=== PATIENT | male | born 1950 | race Asian ===

== ENCOUNTER 2018-10-30 07:17 | Day surgery (SDC) | payer MEDICARE, MEDICAID ==
[2018-10-30] VITALS (8 sets, daily range): BP systolic 117–137; BP diastolic 72–88
[~2018-10-30] VITALS: Ht 149.9 cm; Wt 62.5 kg
[~2018-10-30 07:17] MED LIST: ACYC-202 PO; AMLO2.5T2 PO; ASPI-1265 PO; CARB300C9 PO; CARV-50 PO; DOCUMENT DATE & TIME OF BETA-BLOCKER PO ONE; IBUP-1984 PO; SIMV20TA5 PO; cefazolin/dext.iso 2gm/100 ML IV ONE; famotidine 20mg tablet PO ONE; ringers solution, lacted 1,000 ML IV SCH
[2018-10-30] MEDS ORDERED: CARV6.253 PO (08:36)
[2018-10-30] MEDS ORDERED: ceFAZolin 1000mg inj ONE (08:44)
[2018-10-30] MEDS ORDERED: BUPIVAcaine/PF 2.5 mg/ml (0.25%) 30ml vial ONE (08:44)
[2018-10-30] MEDS ORDERED: LIDOcaine 1% 30ml preserv. free vial ONE (08:44)
[2018-10-30 09:15] LABS: PRE OP PROTIME 10.1 SECONDS (9.0-12.0)
--- NOTE | 2018-10-30 09:18 | NUR ---
SON HERE TO TRANSLATE FOR PT
[2018-10-30 09:19] LABS: BASOPHILS % (AUTO) 0.8 % (0-1); EOSINOPHILS # (AUTO) 0.1 X10'3 (0-0.9); EOSINOPHILS % (AUTO) 1.7 % (0-6); LYMPHOCYTES # (AUTO) 1.3 X10'3 (1.1-4.8); LYMPHOCYTES % (AUTO) 24.4 % (21-51); MEAN CORPUSCULAR HEMOGLOBIN 25.2 PG (27.0-31.0); MEAN CORPUSCULAR VOLUME 76.5 FL (78-98); MEAN PLATELET VOLUME 6.8 FL (7.4-10.4); MONOCYTES # (AUTO) 0.3 X10'3 (0-0.9); MONOCYTES % (AUTO) 6.3 % (2-12); NEUTROPHILS # (AUTO) 3.6 X10'3 (1.8-7.7); NEUTROPHILS % (AUTO) 66.8 % (42-75); PRE OP HEMATOCRIT 43.6 % (42.0-52.0); PRE OP HEMOGLOBIN 14.4 g/dL (14.0-17.9); PRE OP PLATELET COUNT 270 X10'3 (140-440); RED BLOOD COUNT 5.69 X10'6 (4.70-6.10); RED CELL DISTRIBUTION WIDTH 14.1 % (11.5-14.5)
[2018-10-30 09:42] LABS: ALBUMIN 3.5 G/DL (3.4-5.0); ALBUMIN/GLOBULIN RATIO 0.9 (1.1-1.5); ALKALINE PHOSPHATASE 77 IU/L (46-116); BLOOD UREA NITROGEN 10 MG/DL (7-18); BUN/CREATININE RATIO 12.2 (5.4-32.0); CALCIUM 8.4 MG/DL (8.5-10.1); CHLORIDE 106 MMOL/L (99-107); CREATININE 0.82 MG/DL (0.60-1.10); PRE OP ALT 45 U/L (30-65); PRE OP ANION GAP 6 (8-16); PRE OP AST 22 U/L (10-37); PRE OP BILIRUB, TOTAL 0.2 MG/DL (0.0-1.0); PRE OP GLUCOSE 106 MG/DL (70-104); PRE OP POTASSIUM 3.9 MMOL/L (3.4-5.1); PRE OP SODIUM 141 MMOL/L (135-145); TOTAL CARBON DIOXIDE 28.6 MMOL/L (24-32); TOTAL PROTEIN 7.2 G/DL (6.4-8.2); eGFR > 90 ML/MIN
[2018-10-30] MEDS ORDERED: sevoflurane 250ml liquid IH ONE (10:21)
[2018-10-30] MEDS ORDERED: fentaNYL/PF 50MCG/1 ML 2ML syringe ONE (10:23)
[2018-10-30] MEDS ORDERED: midazolam 2 mg/2 ml injection ONE (10:24)
[2018-10-30] MEDS ORDERED: meperidine/PF 25mg/ml syringe IV PRN ×3 (10:55)
[2018-10-30] MEDS ORDERED: morphine 4 MG/ML inj SYRINge IV PRN ×3 (10:55→11:05)
[2018-10-30] MEDS ORDERED: proCHLORperazine 10 MG/2 ml inj IV PRN ×2 (10:55→11:05)
[2018-10-30] MEDS ORDERED: ondansetron/PF 4mg/2ml inj IV PRN (10:55)
[2018-10-30] MEDS ORDERED: ringers solution, lacted 1,000 ML IV SCH (10:55)
[2018-10-30] MEDS ORDERED: propofol inj 20 ML IV ONE (10:58)
[2018-10-30] MEDS ORDERED: ePHEDrine 50MG/ML INJ. ONE (10:58)
[2018-10-30] MEDS ORDERED: HYDROcodone/acetaminophen 10/325mg tab PO PRN (11:05)
[2018-10-30] MEDS ORDERED: acetaminophen 325mg tablet PO PRN (11:05)
--- NOTE | 2018-10-30 11:12 | NUR ---
Received from OR via [facility] , accompanied by Anesthesiologist SUMEET and report given by Anesthesiolgist. PATIENT WITH 20G PIV IN RIGHT UE RUNNING LR AT 100. PATIENT WITH DRESSING TO LEFT ANTERIOR CHEST WALL THAT IS DRESSED WITH STERI STRIPS AND OP SITE DRESSING. SPOTTED WITH BLOOD BUT CONTAINED IN DRESSING. LMA IN PLACE. WILL REMOVE ONCE MORE AWARE AND AWAKE. Addendum: 10/30/18 at 1128 by Paul Regan RN, RN Amended: Links added.
--- NOTE | 2018-10-30 12:12 | NUR ---
ALL DC CRITERIA HAS BEEN MET. IV TAKEN OUT WITHOUT COMPLICATIONS. ALL INSTRUCTIONS COVERED AND ALL QUESTIONS ANSWERED. DRESSINGS CDI. OUT VIA WHEELCHAIR TO PERSONAL VEHICLE WHERE PATIENT WAS SECURED IN AND DRIVEN HOME BY FAMILY. PRESENT FOR DC AND DROVE PATIENT HOME. DRESSING STILL CDI. DENIES PAIN. Addendum: 10/30/18 at 1215 by Paul Regan RN, RN Amended: Links added.
== END 2018-10-30 12:12 | disposition home or self-care (01) ==
LOC: PAS 07:17
PROVIDERS: ATTEND Thoracic Surgery (Cardiothoracic Vascular Surgery)
DX: Z45.02 Encounter for adjustment and management of automatic implantable cardiac defibrillator (principal); I10 Essential (primary) hypertension; Z79.899 Other long term (current) drug therapy; Z79.84 Long term (current) use of oral hypoglycemic drugs; Z87.891 Personal history of nicotine dependence; Z79.01 Long term (current) use of anticoagulants; Z79.82 Long term (current) use of aspirin
CPT/HCPCS: 33262; 36415; 71045; 80053; 82948; 85025; 85610; 85730; C1722; J0690; J2001; J2250; J2704; J3010; J3490; J7120; A4215; A4618; A6258; A7000

== ENCOUNTER 2018-11-06 08:33 | Emergency (ER) | payer MEDICARE, MEDICAID ==
[~2018-11-06] VITALS: Ht 149.9 cm; Wt 64.2 kg
[~2018-11-06 08:33] MED LIST changes: -ACYC-202 PO; -ASPI-1265 PO; -CARV-50 PO; +CARV6.253 PO; -DOCUMENT DATE & TIME OF BETA-BLOCKER PO ONE; -cefazolin/dext.iso 2gm/100 ML IV ONE; -famotidine 20mg tablet PO ONE; -ringers solution, lacted 1,000 ML IV SCH
--- NOTE | 2018-11-06 09:14 | NUR ---
SPOUSE AT BEDSIDE,AWAITING MD.
[2018-11-06 10:38] VITALS: BP 141/91
== END 2018-11-06 10:41 | disposition home or self-care (01) ==
LOC: ER 08:34
DX: T82.837A Hemorrhage due to cardiac prosthetic devices, implants and grafts, initial encounter (principal); I48.91 Unspecified atrial fibrillation; Z79.899 Other long term (current) drug therapy; Z79.82 Long term (current) use of aspirin; Z95.0 Presence of cardiac pacemaker; Y83.8 Other surgical procedures as the cause of abnormal reaction of the patient, or of later complication, without mention of misadventure at the time of the procedure; Y92.89 Other specified places as the place of occurrence of the external cause
CPT/HCPCS: 71045; 99283